=== PATIENT | male | born 1955 | race Caucasian/White ===

== ENCOUNTER 2020-05-08 00:41 | Outpatient (CLI) | payer BC, SELFPAY ==
[2020-05-08 16:39] LABS: SARS-CoV-2 RNA PCR Negative
== END 2020-05-08 00:42 | disposition home or self-care (01) ==
LOC: ANHCOVIDDT 00:41
PROVIDERS: PCP Internal Medicine; Visit Provider Internal Medicine Gastroenterology
DX: Z01.812 Encounter for preprocedural laboratory examination (principal); Z20.828 Contact with and (suspected) exposure to other viral communicable diseases
CPT/HCPCS: 87635; C9803; U0003

== ENCOUNTER 2020-05-10 03:06 | Day surgery (SDC) | payer BC, SELFPAY ==
[2020-04-28 11:19] VITALS: BMI 27.9
[2020-05-10] MEDS: LACTATED RINGERS 1,000 ML 150 ML IV CONT (08:34)
[2020-05-10 08:35] VITALS: BP 134/81; PULSE 91; RESP 18; TEMP 36.4; O2SAT 99; BMI 26.6
--- NOTE | 2020-05-10 08:46 | PM.HPGS ---
History of Present Illness History of Present Illness Consent: Risks, benefits, and alternatives have been discussed and questions answered. Patient agrees to proceed with procedure. Chief complaint: Neoplasm Screening Narrative: Shad Garcia is a 64 year old male here for screening colonoscopy PMFSH Family History Family History Father Family history of glaucoma Patient's father is , Onset Age: 85 Mother Patient's mother is , Onset Age: 80 Social History Social History Smoking packs per day: 1 Smoking cigarettes per day: 20.0 Years smoked: 5 Smoking pack-years: 5.00 Smoking status: Former smoker Tobacco type: cigarettes Smoking end date: 08/25/78 Alcohol intake: current Substance use: never Substance use type: does not use Living arrangements: with family Gender identity (if verbalized by the patient): Male Spiritual care concerns: No Meds Home Medications and Allergies Home Medications Medication Instructions Recorded Confirmed Type lisinopril 20 mg tablet 20 mg PO DAILY #90 tablet 12/06/19 04/28/20 Rx pravastatin 20 mg tablet 20 mg PO DAILY #90 tablet 12/21/19 04/28/20 Rx finasteride 5 mg tablet See Rx Instructions .ROUTE 03/27/20 04/28/20 Rx .COMPLEX #90 tablet tamsulosin 0.4 mg capsule 0.4 mg PO DAILY 04/10/20 04/28/20 History potassium citrate 20 meq PO BID 04/28/20 04/28/20 History Allergies Allergy/AdvReac Type Severity Reaction Status Date / Time No Known Allergies Allergy Verified 05/10/20 08:34 Vital Signs Vital Signs - 24 hr 05/10/20 08:35 Temperature 36.4 C Pulse Rate 91 Respiratory Rate 18 Blood Pressure 134/81 Pulse Oximetry 99 Exam Resp: Auscultation: clear to auscultation bilaterally Cardio: Rate: regular rate Rhythm: regular rhythm GI: GI Palp: Yes Soft to palpation and No Tenderness to palpation present (GI) Assessment and Plan Assessment and plan (1) Colon cancer screening: Code(s): Z12.11 - Encounter for screening for malignant neoplasm of colon Status: Acute Assessment and Plan: Colonoscopy with possible biopsy or polypectomy or cautery or injection of substances.
--- NOTE | 2020-05-10 09:12 | WPDANESEPPF ---
Anes - Initial Pre Proc Eval Procedure: Operation Date: 05/10/20 09:30 Proposed Procedures p Screening Colonoscopy - Carlos Eduardo Singh MD Date/Time: 05/10/20 09:12 Surgeon: Carlos Eduardo Singh MD Pre Op Diagnosis: Neoplasm Screening Patient Data Age: 64 Gender: M Height: 5 ft 7 in Weight: 77.2 kg Last Vital Signs Temp 97.6 F 05/10/20 08:35 Pulse 91 05/10/20 08:35 Resp 18 05/10/20 08:35 BP 134/81 05/10/20 08:35 Pulse Ox 99 05/10/20 08:35 Allergies Allergy/AdvReac Type Severity Reaction Status Date / Time No Known Allergies Allergy Verified 05/10/20 08:34 Home Medications Medication Instructions Recorded Confirmed Type lisinopril 20 mg tablet 20 mg PO DAILY #90 tablet 12/06/19 04/28/20 Rx pravastatin 20 mg tablet 20 mg PO DAILY #90 tablet 12/21/19 04/28/20 Rx finasteride 5 mg tablet See Rx Instructions .ROUTE 03/27/20 04/28/20 Rx .COMPLEX #90 tablet tamsulosin 0.4 mg capsule 0.4 mg PO DAILY 04/10/20 04/28/20 History potassium citrate 20 meq PO BID 04/28/20 04/28/20 History Patient hx anesthesia problems: none Family hx anesthesia problems: none PMFSH Past Medical History Medical History (Updated 05/10/20 @ 09:11 by Saúl Vanegas MD) Benign essential hypertension Mixed hyperlipidemia Family History Family History Father Family history of glaucoma Patient's father is , Onset Age: 85 Mother Patient's mother is , Onset Age: 80 Social History Social History Smoking packs per day: 1 Smoking cigarettes per day: 20.0 Years smoked: 5 Smoking pack-years: 5.00 Smoking status: Former smoker Tobacco type: cigarettes Smoking end date: 08/25/78 Alcohol intake: current Substance use: never Substance use type: does not use Living arrangements: with family Gender identity (if verbalized by the patient): Male Spiritual care concerns: No Anes - Eval Final PreProcedure Day of Procedure 05/10/20 09:12 Patient weight: normal Heart: regular rate and rhythm Lungs: clear to auscultation Airway: Mallampati scale class II Neurological: alert and oriented Last oral intake: >/= 8 hours ASA classification: II Emergent: no Anesthetic plan: proceed Anesthesia type and monitoring: general GIVS and standard monitoring Informed Consent: The patient's anesthetic plan and its attendant risks and benefits were discussed with the patient/family/POA. Questions were solicited and answers provided to the satisfaction of the patient/family/POA.
[2020-05-10 09:37] VITALS: BP 104/64; PULSE 76; RESP 20; O2SAT 99
[2020-05-10 09:47] VITALS: BP 108/69; PULSE 73; RESP 14; O2SAT 100
[2020-05-10 09:57] VITALS: BP 115/78; PULSE 68; RESP 19; O2SAT 100
== END 2020-05-10 10:00 | disposition home or self-care (01) ==
PROVIDERS: PCP Internal Medicine; Visit Provider Internal Medicine Gastroenterology
PROC: 0DJD8ZZ Inspection of Lower Intestinal Tract, Via Natural or Artificial Opening Endoscopic (ICD-10-PCS; CPT 45378; principal; 2020-05-10 09:30)
DX: Z12.11 Encounter for screening for malignant neoplasm of colon (principal); K62.1 Rectal polyp; K57.30 Diverticulosis of large intestine without perforation or abscess without bleeding; Z87.891 Personal history of nicotine dependence
CPT/HCPCS: 45380; 88305; J2704; J7120

== ENCOUNTER → 2020-09-15 09:24 | Outpatient (CLI) | payer BC, SELFPAY ==
--- NOTE | ~2020-09-15 | CT_ITS ---
EXAMINATION: CT pelvis wo con DATE: 09/15/2020 09:37 INDICATION: Pelvic and perineal pain. Testicular pain. TECHNIQUE: High resolution computed tomography (CT) of the pelvis was performed without intravenous c ontrast. Additional sagittal and coronal reconstructions were performed. Automated exposure control a nd iterative reconstruction technique were employed. The dose-length product was 550.33 mGy-cm. COMPARISON: CT abdomen and pelvis dated 01/07/2017 FINDINGS: There are few diverticula along the visualized descending colon without adjacent inflammatory change to suggest diverticulitis. The appendix and remainder of the visualized bowels are unremarkable. Blad miguelito is normal. Mild prostatomegaly measuring 4.5 x 2.9 x 2.9 cm. Small fat-containing right inguinal hernia. Small bilateral hydroceles. No free intraperineal fluid in the pelvis. No pathologically enla rged pelvic or inguinal lymphadenopathy. Mild bilateral hip osteoarthritis and minimal lower lumbar s pondylosis. IMPRESSION: 1. Small fat-containing right inguinal hernia. 2. Small bilateral hydroceles. 3. Mild diverticulosis. 4. Mild prostatomegaly. Reviewed, dictated and finalized at location A. SUPERVISOR
== END ==
PROVIDERS: Visit Provider Surgery
DX: R10.2 Pelvic and perineal pain (principal); K40.90 Unilateral inguinal hernia, without obstruction or gangrene, not specified as recurrent; N43.3 Hydrocele, unspecified; K57.90 Diverticulosis of intestine, part unspecified, without perforation or abscess without bleeding; N40.0 Benign prostatic hyperplasia without lower urinary tract symptoms
CPT/HCPCS: 72192

== ENCOUNTER → 2021-09-06 09:00 | Outpatient (CLI) | payer MEDICARE, SELFPAY ==
[2021-09-06 14:07] LABS: Influenza A QL RT-PCR Negative (Negative); Influenza B QL RT-PCR Negative (Negative); SARS-CoV-2 RNA PCR Positive
== END ==
PROVIDERS: PCP Internal Medicine; Visit Provider Internal Medicine
DX: U07.1 COVID-19 (principal)
CPT/HCPCS: 87502; C9803; U0003; U0005